=== PATIENT | female | born 1985 | race Caucasian/White ===

== ENCOUNTER 2017-02-20 05:34 | Inpatient (IN) | payer OTHER ==
[~2017-02-20] VITALS: Ht 137.2 cm; Wt 92.0 kg
--- NOTE | 2017-02-20 06:21 | PR ---
[facility] [address] [place] [address] Signed Progress Notes IP Datetime Report Generated by CPN: 02/20/2017 06:21 PROGRESS NOTES: [id number] Impression: Normal progression of labor Procedures: Artificial ROM Plan: Continue present management; Anticipate Vaginal Delivery VITAL SIGNS: [id number] Vital Signs: Reviewed; Within Normal Limits EXAM: [id number] Dilatation: 10.0 Effacement: 100 Station: 0 MEMBRANES: [id number] Membrane Status: Intact Fetus A: [id number] FHR Baseline: 150 Variability: Moderate 6-25bpm Decelerations: Variable Presentation: Vertex Other Presentation: OP Fetus B: [id number] Signing Physician: Sarthak Collado MD CC: *Electronically Signed* 02/20/17 0621 SARTHAK COLLADO MD PATIENT NAME: LIZ OBREGON PROGRESS NOTE DATE OF : 83 PHYSICIAN: SARTHAK COLLADO MD RPT #: [id number] REPORT IS CONFIDENTIAL AND NOT TO BE RELEASED WITHOUT AUTHORIZATION
--- NOTE | 2017-02-20 14:25 | NUR ---
MET WITH THE NEW DAD! HE WAS VERY EXCITED, BUT ADAMANT THAT THIS IS THEIR LAST, THIS IS #3. HE HAS TO GO BUY A BIGGER CAR! GOD BLESS THEM
--- NOTE | 2017-02-21 11:06 | PR ---
[facility] [address] [facility] [place] [address] Signed PP Progress Notes Datetime Report Generated by CPN: 02/21/2017 11:06 SUBJECTIVE: [id number] Pain: Within normal limits Nausea/Vomiting: Denies Vital Signs: [id number] Vital Signs: Reviewed; Within Normal Limits Notable Details: PP Hgb/Hct = 9.3/28.1 EXAM: [id number] Abdomen/Uterus: Normal Lochia: Normal Extremities: Normal IMPRESSION/PLAN/PROCEDURES: [id number] Impression: Normal progression Plan: Continue present management Procedures: None Progress Notes: Doing well, without complaint. Signing Physician: Sarthak Collado MD CC: *Electronically Signed* 02/21/17 1106 SATRHAK COLLADO MD PATIENT NAME: LIZ OBREGON PROGRESS NOTE DATE OF : 83 PHYSICIAN: SARTHAK COLLADO MD RPT #: [id number] REPORT IS CONFIDENTIAL AND NOT TO BE RELEASED WITHOUT AUTHORIZATION
--- NOTE | 2017-02-22 11:14 | PR ---
[facility] [address] [facility] [place] [address] Signed PP Progress Notes Datetime Report Generated by CPN: 02/22/2017 11:14 SUBJECTIVE: [id number] Pain: Within normal limits Nausea/Vomiting: Denies Vital Signs: [id number] Vital Signs: Reviewed; Within Normal Limits Notable Details: Occasional increase in BP EXAM: [id number] Abdomen/Uterus: Normal Lochia: Normal Extremities: Normal IMPRESSION/PLAN/PROCEDURES: [id number] Impression: Normal progression Plan: Discharge Procedures: None Progress Notes: No SAUCEDO's, vision changes. Doing well, ready to go home. Signing Physician: Sarthak Collado MD CC: *Electronically Signed* 02/22/17 1114 SARTHAK COLLADO MD PATIENT NAME: LIZ OBREGON PROGRESS NOTE DATE OF : 83 PHYSICIAN: SARTHAK COLLADO MD RPT #: [id number] REPORT IS CONFIDENTIAL AND NOT TO BE RELEASED WITHOUT AUTHORIZATION
== END 2017-02-22 12:10 | disposition home or self-care (01) | DRG 775 ==
LOC: FBC 05:34
PROVIDERS: ADMIT General Practice
PROC: 10907ZC Drainage of Amniotic Fluid, Therapeutic from Products of Conception, Via Natural or Artificial Opening (ICD-10-PCS; principal; 2017-02-20)
PROC: 10E0XZZ Delivery of Products of Conception, External Approach (ICD-10-PCS; 2017-02-20)
PROC: 0KQM0ZZ Repair Perineum Muscle, Open Approach (ICD-10-PCS; 2017-02-20)
DX: O48.0 Post-term pregnancy (principal); O70.1 Second degree perineal laceration during delivery; Z37.0 Single live birth; Z3A.40 40 weeks gestation of pregnancy; O99.824 Streptococcus B carrier state complicating childbirth
CPT/HCPCS: 36415; 85027; J2590